=== PATIENT | male | born 1990 | race Caucasian/White ===

== ENCOUNTER 2020-03-17 04:53 | Emergency (ER) | payer SELFPAY ==
[~2020-03-17] VITALS: Ht 182.9 cm; Wt 81.6 kg
[2020-03-17 05:01] VITALS: BP 136/95; Ht 182.9 cm; Wt 81.6 kg
== END 2020-03-17 07:34 | disposition other institution (70) ==
LOC: ED 04:53
DX: S42.002A Fracture of unspecified part of left clavicle, initial encounter for closed fracture (principal); X58.XXXA Exposure to other specified factors, initial encounter; Y93.89 Activity, other specified; Y92.89 Other specified places as the place of occurrence of the external cause; Y99.8 Other external cause status

== ENCOUNTER 2020-03-17 04:53 | Emergency (ER) | payer OTHER | END 2020-03-17 07:34 | disposition other institution (70) | LOC: ED 04:53 | DX: Z02.89 Encounter for other administrative examinations (principal) ==